=== PATIENT | male | born 1995 | race Caucasian/White ===

== ENCOUNTER 2024-02-12 11:24 | Emergency (ER) | payer MEDICAID ==
[~2024-02-12] VITALS: Ht 180.3 cm; Wt 86.6 kg
[2024-02-12 11:44] VITALS: TEMP 98.4; O2SAT 99
[2024-02-12 12:20] LABS: HEMOGLOBIN 14.3 g/dL (14.0-18.0); MEAN CORPUSCULAR HEMOGLOBIN 29.6 pg (28.0-32.0); MEAN CORPUSCULAR HGB CONC 33.3 g/dL (31.0-37.0); MEAN CORPUSCULAR VOLUME 88.9 fL (80.0-94.0); PLATELET 297 x1000/uL (130-400); RED BLOOD CELL COUNT 4.84 mill/uL (4.7-6.1); RED CELL DISTRIBUTION WIDTH 13.4 % (11.6-14.6); WHITE BLOOD COUNT 10.4 x1000/uL (4.5-11.0)
[2024-02-12 12:28] LABS: CHLORIDE 108 mEq/L (98-107); POTASSIUM 4.5 mEq/L (3.5-5.1); SODIUM 140 mEq/L (136-145)
[2024-02-12 12:29] LABS: CARBON DIOXIDE 28 mEq/L (21-32)
[2024-02-12 12:30] LABS: CALCIUM 9.6 mg/dL (8.7-10.4)
[2024-02-12 12:34] LABS: CREATININE 1.1 mg/dL (0.6-1.3); GLUCOSE 99 mg/dL (70-105)
[2024-02-12 12:35] LABS: UREA NITROGEN BLOOD 12 mg/dL (9-23)
[2024-02-12 13:25] LABS: TROPONIN I HIGH SENSITIVITY < 4 ng/L (3.0-53)
[2024-02-12] MEDS: ASPIRIN 325MG EC TABLET PO ONE (13:30)
[2024-02-12 14:41] VITALS: BP 145/92; PULSE 74; RESP 16
[2024-02-12] MEDS: MAGNESIUM/ALUMINUM HYDROXIDE/SIMETHICONE 30ML UDC PO STA (14:41)
[2024-02-12] MEDS: ONDANSETRON 4MG ODT PO ONE (14:41)
[2024-02-12] MEDS: FAMOTIDINE 20MG TABLET PO ONE (14:41)
== END 2024-02-12 15:20 | disposition home or self-care (01) ==
LOC: ER 11:24
DX: R07.9 Chest pain, unspecified (principal); F12.90 Cannabis use, unspecified, uncomplicated
CPT/HCPCS: 99285; 71045; 80048; 83880; 85027; 84484; 36415; 93005; Q0162